=== PATIENT | male | born 1985 | race Caucasian/White ===

== ENCOUNTER → 2017-10-18 | Outpatient (CLI) | payer BC ==
[~2017-10-18] MED LIST: IOPAMIDOL 370 MG/ML 200 ML INFUS..BTL INJ ONE; SODIUM CHLORIDE 0.9% 50ML 50 ML ONE
[2017-10-18 14:37] LABS: BLOOD UREA NITROGEN 14 mg/dL (7-26); BUN/CREATININE RATIO 15 (6-25); CREATININE, SERUM 0.96 mg/dL (0.72-1.25); EST GLOMERULAR FILTRATION RATE > 60 ML/MIN (60-)
--- NOTE | 2017-10-18 15:11 | Diagnostic Imaging Report ---
This report includes an Addendum and supersedes previous reports for this exam. PROCEDURE: CT scan of the chest WITH intravenous contrast, using pulmonary embolus protocol. TECHNIQUE: The chest was scanned utilizing a multidetector helical scanner from the lung apex through the level of the adrenal glands after the IV administration of 76 cc of Isovue 370. Coronal and sagittal multiplanar reformations were obtained. COMPARISON: None. INDICATIONS: PULMONARY EMBOLISM, CHEST PAIN FINDINGS: Lines/tubes: None. Pulmonary Arteries: Technically adequate examination. No evidence of pulmonary embolus. The main pulmonary artery is normal in caliber, measuring 2.9 cm. Lungs and Airways: The lungs and airways are normal with no focal abnormality demonstrated. There is minimal subpleural groundglass opacity in the dependent portions of the lungs. This is probably related to subsegmental atelectasis. Pleura: The pleural spaces are clear. Heart and mediastinum: The thyroid gland is normal. No significant mediastinal, hilar or axillary lymphadenopathy is seen. The heart and pericardium are within normal limits. Soft tissues: Normal. Abdomen: Limited contrast-enhanced views of the upper abdomen. There is diffuse hepatic steatosis. Bones: The visualized bony thorax is within normal limits. IMPRESSION: No CT findings to explain the patient's symptoms. No evidence of pulmonary embolus. Dictated by: Zenon Craft M.D. on 10/18/2017 at 15:10 Electronically approved by: Zenon Craft M.D. on 10/18/2017 at 15:10 ADDENDUM: The findings were discussed with Dr. Benitez at 4:31 pm on 10/18/2017. Dictated by: Zenon Craft M.D. on 10/18/2017 at 16:33 Electronically approved by: Zenon Craft M.D. on 10/18/2017 at 16:33
== END ==
LOC: CT 13:17
PROVIDERS: ATTEND Family Medicine
DX: R07.89 Other chest pain (principal)
CPT/HCPCS: 36415; 71260; 82565; 84520; Q9967

== ENCOUNTER 2022-10-26 06:37 | Inpatient (IN) | payer BC ==
[2022-10-22 09:03] LABS: BASOPHILS % 0.4 % (0.0-1.0); EOSINOPHILS # (AUTO) 0.7 (0.0-0.4); EOSINOPHILS % 8.2 % (0.0-6.0); HEMATOCRIT 42.4 % (38.2-49.6); HEMOGLOBIN 13.8 g/dL (14.0-18.0); LYMPHOCYTES # (AUTO) 2.3 (1.0-3.2); LYMPHOCYTES % 27.7 % (18.0-39.1); MEAN CORPUSCULAR HEMOGLOBIN 30.3 pg (28-32); MEAN CORPUSCULAR HGB CONC 32.5 g/dL (31-35); MEAN CORPUSCULAR VOLUME 93.2 fL (81-99); MONOCYTES # (AUTO) 0.7 (0.2-0.8); MONOCYTES % 8.8 % (4.4-11.3); NEUTROPHILS # (AUTO) 4.6 (2.1-6.9); NEUTROPHILS % 54.4 % (38.7-80.0); PLATELET COUNT 195 x10e3/uL (140-360); RED BLOOD COUNT 4.55 x10e6/uL (4.3-5.7); RED CELL DISTRIBUTION WIDTH 13.7 % (11.7-14.4)
[2022-10-22 09:25] LABS: ANION GAP 11.4 mmol/L (8-16); BLOOD UREA NITROGEN 19 mg/dL (7-26); BUN/CREATININE RATIO 18 (6-25); CALCIUM 9.1 mg/dL (8.4-10.2); CARBON DIOXIDE 24 mmol/L (22-29); CHLORIDE 110 mmol/L (98-107); CREATININE, SERUM 1.04 mg/dL (0.72-1.25); GLUCOSE 109 mg/dL (74-118); POTASSIUM 4.4 mmol/L (3.5-5.1); SODIUM 141 mmol/L (136-145)
[~2022-10-26] VITALS: Ht 177.8 cm; Wt 155.1 kg
[2022-10-26] MEDS ORDERED: CEFAZOLIN SODIUM 2 GM ONE (07:33)
[2022-10-26] MEDS ORDERED: BUPIVACAINE 0.25% 30ML SDV ONE (07:58)
[2022-10-26] MEDS: SODIUM CHLORIDE 0.9% 1000ML 1,000 ML IV SCH ×3 (08:00→19:54)
[2022-10-26] MEDS ORDERED: SUGAMMADEX SODIUM 200 MG/2 ML VIAL IV ONE (10:28)
[2022-10-26] MEDS ORDERED: ACETAMINOPHEN 1000 MG/100 ML 100 ML IV ONE (11:34)
[2022-10-26] MEDS ORDERED: PROMETHAZINE HCL (IM) 25 MG/ML VIAL IM ONE (11:47)
[2022-10-26] MEDS ORDERED: SCOPOLAMINE 1 MG PATCH TOP SCH ×2 (12:00→12:15)
[2022-10-26] MEDS ORDERED: HYDRALAZINE HCL 20 MG/ML VIAL ONE (12:04)
[2022-10-26] MEDS ORDERED: FENTANYL CITRATE/PF 100MCG/2 ML INJ ONE ×2 (12:04→13:16)
[2022-10-26 12:46] VITALS: BP 154/90
[2022-10-26] MEDS ORDERED: SEVOFLURANE INHAL SOLN 250 ML PEN BTL ONE (12:53)
[2022-10-26] MEDS ORDERED: ONDANSETRON HCL INJ 2MG/ML 2ML 2 MG/ML VIAL ONE (12:53)
[2022-10-26] MEDS ORDERED: POVIDONE IODINE 0.05% 0.05 % ML PO ONE (12:53)
[2022-10-26] MEDS ORDERED: PROPOFOL IV EMULSION 10 MG/ML 20 ML VIAL ONE (12:53)
[2022-10-26] MEDS ORDERED: DEXAMETHASONE SOD PHOS INJ 4 MG/ML SDV ONE (12:53)
[2022-10-26] MEDS: Morphine 2mg Syringe 2 MG/ML SYR IV PRN ×3 (13:21→19:52)
[2022-10-26] MEDS: ONDANSETRON HCL INJ 2MG/ML 2ML 2 MG/ML VIAL IV PRN ×2 (13:21→19:51)
[2022-10-26 14:34] VITALS: BP 154/90
[2022-10-26 14:52] VITALS: BP 154/90
[2022-10-26 16:14] VITALS: BP 140/82
[2022-10-26] MEDS: HYDROCODONE/APAP 7.5MG-325MG 1 EA TAB PO PRN (18:10)
[2022-10-26] MEDS: ENOXAPARIN SOD INJ 40 MG/0.4 ML SYR SC SCH (19:51)
[2022-10-27] MEDS: HYDROCODONE/APAP 7.5MG-325MG 1 EA TAB PO PRN (01:04)
[2022-10-27] MEDS: Morphine 2mg Syringe 2 MG/ML SYR IV PRN ×2 (01:09→05:05)
[2022-10-27 04:28] VITALS: BP 140/82
[2022-10-27] MEDS: SODIUM CHLORIDE 0.9% 1000ML 1,000 ML IV SCH (05:05)
[2022-10-27 06:09] LABS: BASOPHILS % 0.1 % (0.0-1.0); EOSINOPHILS % 0.2 % (0.0-6.0); HEMATOCRIT 39.9 % (38.2-49.6); HEMOGLOBIN 13.3 g/dL (14.0-18.0); LYMPHOCYTES # (AUTO) 1.9 (1.0-3.2); LYMPHOCYTES % 14.9 % (18.0-39.1); MEAN CORPUSCULAR HEMOGLOBIN 31.4 pg (28-32); MEAN CORPUSCULAR HGB CONC 33.3 g/dL (31-35); MEAN CORPUSCULAR VOLUME 94.1 fL (81-99); MONOCYTES # (AUTO) 1.3 (0.2-0.8); NEUTROPHILS # (AUTO) 9.3 (2.1-6.9); NEUTROPHILS % 74.2 % (38.7-80.0); PLATELET COUNT 200 x10e3/uL (140-360); RED BLOOD COUNT 4.24 x10e6/uL (4.3-5.7)
[2022-10-27 06:38] LABS: ALBUMIN 3.7 g/dL (3.5-5.0); ALBUMIN/GLOBULIN RATIO 1.1 (0.8-2.0); ANION GAP 14.9 mmol/L (8-16); CALCIUM 8.6 mg/dL (8.4-10.2); CREATININE, SERUM 1.08 mg/dL (0.72-1.25); MAGNESIUM 1.7 MG/DL (1.3-2.1); PHOSPHORUS 2.9 MG/DL (2.3-4.7); POTASSIUM 3.9 mmol/L (3.5-5.1)
[2022-10-27 08:20] VITALS: BP 129/74
[2022-10-27 08:23] VITALS: BP 129/74
[2022-10-27] MEDS: ENOXAPARIN SOD INJ 40 MG/0.4 ML SYR SC SCH (09:02)
== END 2022-10-27 09:30 | disposition home or self-care (01) | DRG 621 ==
LOC: OR 06:37 → PACU V 07:55 → MED/SURG2 12:43
PROVIDERS: ADMIT Internal Medicine; ATTEND Internal Medicine
PROC: 0DB64Z3 Excision of Stomach, Percutaneous Endoscopic Approach, Vertical (ICD-10-PCS; principal; 2022-10-26 09:16)
PROC: 0BQT4ZZ Repair Diaphragm, Percutaneous Endoscopic Approach (ICD-10-PCS; 2022-10-26 09:16)
DX: E66.01 Morbid (severe) obesity due to excess calories (principal); Z68.42 Body mass index [BMI] 45.0-49.9, adult; K44.9 Diaphragmatic hernia without obstruction or gangrene; G47.33 Obstructive sleep apnea (adult) (pediatric); I10 Essential (primary) hypertension; E11.9 Type 2 diabetes mellitus without complications; K21.9 Gastro-esophageal reflux disease without esophagitis; K76.0 Fatty (change of) liver, not elsewhere classified; R74.01 Elevation of levels of liver transaminase levels; Z20.822 Contact with and (suspected) exposure to COVID-19
CPT/HCPCS: 0223U; 36415; 80048; 80053; 82948; 83735; 84100; 85025; 93005; 94799; C1713; J0360; J1100; J1650; J2270; J2405; J2550; J3010; J7030